=== PATIENT | male | born 1990 | race Caucasian/White ===

== ENCOUNTER 2022-07-13 08:59 | Emergency (ER) | payer SELFPAY | END 2022-07-13 09:13 | disposition left against medical advice (07) | LOC: MW.ED 08:59 | DX: Z53.21 Procedure and treatment not carried out due to patient leaving prior to being seen by health care provider (principal) ==

== ENCOUNTER 2022-11-26 12:18 | Emergency (ER) | payer BC, MEDICAID | END 2022-11-26 12:58 | disposition home or self-care (01) | LOC: MW.ED 12:18 | DX: Z00.00 Encounter for general adult medical examination without abnormal findings (principal); Z22.322 Carrier or suspected carrier of Methicillin resistant Staphylococcus aureus | CPT/HCPCS: 87081; 87641; 99282 ==